=== PATIENT | female | born 1965 | race Two or more races ===

== ENCOUNTER 2019-01-30 14:08 | Emergency (ER) | payer OTHER ==
[~2019-01-30] VITALS: Ht 165.1 cm; Wt 81.6 kg
[2019-01-30] MEDS ORDERED: DIOVAN160 M1 (14:51)
== END 2019-01-30 21:24 | disposition home or self-care (01) ==
LOC: EDBD 14:08 → ER 14:08
DX: I16.0 Hypertensive urgency (principal); I10 Essential (primary) hypertension; M54.2 Cervicalgia